=== PATIENT | female | born 1965 ===

== ENCOUNTER 2017-01-05 06:29 | Day surgery (SDC) | payer OTHER ==
[2017-01-05 06:59] VITALS: BMI 24.4
[2017-01-05 07:20] VITALS: O2SAT 100
[2017-01-05] MEDS ORDERED: Midazolam 2 MG/2 ML VIAL ONE (08:11)
[2017-01-05] MEDS ORDERED: Lactated Ringer's 500 ML IV ONE ×2 (08:15)
[2017-01-05] MEDS ORDERED: Lidocaine Hydrochloride 5 ML INJ ONE (08:31)
[2017-01-05] MEDS ORDERED: Propofol 10 mg/ml Inj (20 ML) ONE ×2 (08:31→08:54)
[2017-01-05] MEDS ORDERED: Lactated Ringer's 500 ML IV SCH (09:30)
[2017-01-05 09:38] VITALS: TEMP 97.8
[2017-01-05 11:20] VITALS: BP 134/72; PULSE 67; RESP 14
== END 2017-01-05 11:15 | disposition home or self-care (01) ==
LOC: C.ENDO 06:29
PROVIDERS: ATTEND Internal Medicine Gastroenterology
DX: D12.2 Benign neoplasm of ascending colon (principal); R11.0 Nausea; K64.8 Other hemorrhoids; K29.70 Gastritis, unspecified, without bleeding; K44.9 Diaphragmatic hernia without obstruction or gangrene; K20.9 Esophagitis, unspecified
CPT/HCPCS: 43239; 45388; 84703; 88305; 88312; 88313; 88342; J2250; J2405; J2704; J3010; J7120